=== PATIENT | male | born 1960 | race Caucasian/White ===

== ENCOUNTER → 2018-06-22 20:09 | Outpatient (CLI) | payer OTHER, SELFPAY | PROVIDERS: Visit Provider Internal Medicine Adolescent Medicine | DX: G47.33 Obstructive sleep apnea (adult) (pediatric) (principal); R06.83 Snoring; G47.10 Hypersomnia, unspecified | CPT/HCPCS: 95811 ==

== ENCOUNTER → 2019-03-27 09:51 | Outpatient (CLI) | payer OTHER, SELFPAY ==
[2019-03-27 11:46] LABS: Alanine Aminotransferase 30 U/L (12-78); Albumin Level 3.6 gm/dL (3.4-5.0); Albumin/Globulin Ratio 1.2 (1.1-1.8); Alkaline Phosphatase 103 U/L (46-116); Anion Gap 9.7 mEq/L (5-15); Aspartate Amino Transferase 15 U/L (15-37); Bilirubin,Total 0.3 mg/dL (0.2-1.0); Blood Urea Nitrogen 11 mg/dL (7-18); Calcium 9.1 mg/dL (8.5-10.1); Carbon Dioxide 28 mmol/L (21.0-32.0); Chloride 108 mmol/L (98-107); Chol/HDL Ratio 4.4 (1-3.5); Cholesterol 212 mg/dL (140-200); Creatinine,Serum 1.07 mg/dL (0.70-1.30); Estimated Glomerular Filt Rate 71 ml/min (>60); GFR (African American) 86 ML/MIN (>60); Globulin 3.1 gm/dl (1.3-3.2); Glucose 97 mg/dL (74-106); HDL Cholesterol 48 mg/dL (27-67); LDL Cholesterol 144 mg/dL (0-130); Potassium 4.7 mmoL/L (3.5-5.1); Sodium 141 mmol/L (136-145); Total Protein,Serum 6.7 gm/dL (6.4-8.2); Triglycerides 101 mg/dL (30-200); VLDL Cholesterol 20 mg/dL (0-40)
== END ==
PROVIDERS: Visit Provider Internal Medicine Adolescent Medicine
DX: E78.5 Hyperlipidemia, unspecified (principal)
CPT/HCPCS: 36415; 80053; 80061

== ENCOUNTER → 2019-09-25 09:47 | Outpatient (CLI) | payer OTHER, SELFPAY ==
[2019-09-25 10:12] LABS: Basophils # 0.1 K/mm3 (0-0.2); Basophils % 0.9 % (0.1-2.0); Eosinophils # 0.2 K/mm3 (0.0-0.4); Eosinophils % 2.7 % (0.1-12.0); Hematocrit 47.7 % (42.0-52.0); Hemoglobin 15.4 g/dL (14.1-18.0); Lymphocytes # 1.2 K/mm3 (0.7-4.5); Lymphocytes % 20.3 % (10-50); Mean Corpuscular HGB Conc 32.2 g/dL (31.8-35.4); Mean Corpuscular Hemoglobin 28.6 pg (27.0-31.2); Mean Corpuscular Volume 88.9 fl (80-94); Mean Platelet Volume 7.5 fl (7.4-10.4); Monocytes # 0.5 K/mm3 (0.1-1.0); Monocytes % 7.7 % (1.7-9.3); Neutrophils # 4.2 K/mm3 (1.8-7.8); Neutrophils % 68.3 % (37.0-80.0); Platelet Count 310 K/mm3 (142-424); Red Blood Count 5.36 M/mm3 (4.60-6.20); White Blood Count 6.1 K/mm3 (4.8-10.8)
[2019-09-25 15:16] LABS: Alanine Aminotransferase 30 U/L (12-78); Albumin Level 3.7 gm/dL (3.4-5.0); Albumin/Globulin Ratio 1.3 (1.1-1.8); Alkaline Phosphatase 101 U/L (46-116); Anion Gap 11.4 mEq/L (5-15); Aspartate Amino Transferase 15 U/L (15-37); Bilirubin,Total 0.5 mg/dL (0.2-1.0); Blood Urea Nitrogen 12 mg/dL (7-18); Calcium 9.2 mg/dL (8.5-10.1); Carbon Dioxide 27 mmol/L (21.0-32.0); Chloride 107 mmol/L (98-107); Chol/HDL Ratio 4.4 (1-3.5); Cholesterol 261 mg/dL (140-200); Creatinine,Serum 1.04 mg/dL (0.70-1.30); Estimated Glomerular Filt Rate 73 ml/min (>60); GFR (African American) 88 ML/MIN (>60); Globulin 2.9 gm/dl (1.3-3.2); Glucose 93 mg/dL (74-106); HDL Cholesterol 59 mg/dL (27-67); LDL Cholesterol 178 mg/dL (0-130); Potassium 4.4 mmoL/L (3.5-5.1); Sodium 141 mmol/L (136-145); Total Protein,Serum 6.6 gm/dL (6.4-8.2); Triglycerides 120 mg/dL (30-200); VLDL Cholesterol 24 mg/dL (0-40)
== END ==
PROVIDERS: Visit Provider Internal Medicine Adolescent Medicine
DX: E78.5 Hyperlipidemia, unspecified (principal); G47.33 Obstructive sleep apnea (adult) (pediatric)
CPT/HCPCS: 36415; 80053; 80061; 85025

== ENCOUNTER → 2020-03-27 09:54 | Outpatient (CLI) | payer OTHER, SELFPAY ==
[2020-03-27 10:36] LABS: Chloride 106 mmol/L (98-107); Potassium 4.4 mmoL/L (3.5-5.1); Sodium 138 mmol/L (136-145)
[2020-03-27 10:38] LABS: Blood Urea Nitrogen 15 mg/dl (9-20); Estimated Glomerular Filt Rate 76 ml/min (>60); GFR (African American) 93 ML/MIN (>60)
[2020-03-27 10:39] LABS: Alanine Aminotransferase 29 U/L (12-78); Albumin/Globulin Ratio 1.7 (1.1-1.8); Alkaline Phosphatase 87 U/L (38-126); Anion Gap 9.4 mEq/L (5-15); Aspartate Amino Transferase 32 U/L (17-59); Bilirubin,Total 0.7 mg/dl (0.2-1.3); Calcium 9.2 mg/dl (8.4-10.2); Carbon Dioxide 27 mmol/L (22.0-30.0); Chol/HDL Ratio 3.8 (1-3.5); Cholesterol 225 mg/dl (140-200); Globulin 2.4 g/dL (1.3-3.2); Glucose 99 mg/dl (74-100); HDL Cholesterol 59 mg/dl (40-60); Total Protein,Serum 6.4 g/dl (6.3-8.2); Triglycerides 148 mg/dl (30-150); VLDL Cholesterol 30 mg/dL (0-40)
[2020-03-27 10:50] LABS: Direct LDL Cholesterol 170.67 mg/dL (100-129)
== END ==
PROVIDERS: Visit Provider Internal Medicine Adolescent Medicine
DX: E78.5 Hyperlipidemia, unspecified (principal)
CPT/HCPCS: 36415; 80053; 80061

== ENCOUNTER → 2020-09-16 09:41 | Outpatient (CLI) | payer OTHER, SELFPAY ==
--- NOTE | 2020-09-16 09:47 | XR_ITS ---
PROCEDURE: XR KNEE RT 3V CLINICAL INDICATION: RT KNEE PAIN COMPARISON: No exams were available for comparison FINDINGS: No fracture or dislocation. No lytic or blastic change. There is normal mineralization. The joint spaces are well-preserved. No significant degenerative/arthritic changes other than minor spurring of the lateral tibial spine. No erosive changes evident. There is no definite effusion. Other findings:None. IMPRESSION: No acute findings. Dictated by: Dr. Rick Paz MD 09/16/2020 10:26 Dr. Rick Paz MD in [place] 09/16/2020 10:26
== END ==
PROVIDERS: PCP Internal Medicine Adolescent Medicine; Visit Provider Internal Medicine Adolescent Medicine
DX: M25.561 Pain in right knee (principal)
CPT/HCPCS: 73562

== ENCOUNTER 2020-10-04 08:00 | Outpatient (RCR) | payer OTHER, SELFPAY ==
--- NOTE | 2020-09-24 15:57 | HMH.PTOPEV ---
PT Outpatient Evaluation Rehab PT Outpatient Evaluation Start: 09/24/20 15:31 Freq: Status: Active Protocol: Document 09/24/20 15:31 MARGIE (Rec: 09/24/20 15:56 MARGIE [id number]) Electronically Signed By George Mendez, PT 09/24/20 15:31 Outpatient Therapy Subjective History Subjective History Pt reports h/o chronic R knee pain with possible repeatitive overuse injury ~2 months ago. Pt reports medial aspect R knee pain following extended tractor use (brake pedal), ' seems to be worse following a long day at walk, and then pain when I sit down to drive home'. Chief Complaint Pain,Stiff Symptom Type Ache,Sharp,Dull Symptoms Relieved By Rest/Positioning Symptoms Aggravated By Standing,Walking Prior Functional Limitations Standing,Walking Current Functional Limitations Standing,Squatting,Walking Symptom Description Intermittent Level of pain today (0-10) 2 Pain scale - at its best (0-10) 1 Pain scale - at its worst (0-10) 8 Hip/Knee Eval Gait Observation General Gait Pattern Observation Antalgic Gait Palpation Tenderness right Knee Palpation Finding Tenderness Knee Palpation Overall Comment 2/4 medial jt line MMT Hip Flexion Strength Grade 5 Normal Hip Abduction Strength Grade 4 Good Hip Adduction Strength Grade 4 Good Hip Extension Strength Grade 5 Normal Hip External Rotation Strength Grade 4 Good Hip Internal Rotation Strength Grade 4- Good- Knee Extension Strength Grade 5 Normal Knee Flexion Strength Grade 5 Normal ROM Knee Flexion Active Range of Motion ( 0-130 degrees) Special Tests Knee Valgus Stress Test Negative Right Knee Varus Stress Test Negative Right Knee Pal Test Negative Right Patella Apprehension Test Negative Right Patellar Grind Test Negative Right Outpatient Therapy Assessment Impairments Problems/Impairmments Palpation Tenderness,Impaired Range of Motion,Impaired Strength,Impaired Gait Pattern ,Impaired Walking,Impaired Standing,Impaired Squatting, Subjective C/O Pain,Impaired Self Care/Self Management Prognosis Rehab Potential Good Clinical Impression Consistent with Diagnosis Yes Short Term Goals Number of Weeks 4 Decreased Palpation Tenderness Yes: WFL
== END 2020-10-04 08:52 | disposition home or self-care (01) ==
LOC: PT 08:00
PROVIDERS: PCP Internal Medicine Adolescent Medicine; Visit Provider Internal Medicine Adolescent Medicine
DX: M25.561 Pain in right knee (principal)
CPT/HCPCS: 97010; 97014; 97033; 97035; 97110; 97163; G0283

== ENCOUNTER 2020-11-12 08:55 | Emergency (ER) | payer OTHER, SELFPAY ==
--- NOTE | 2020-11-12 09:06 | XR_ITS ---
PROCEDURE: XR WRIST LT MIN 3V CLINICAL INDICATION: fell off of ladder Posttraumatic pain COMPARISON: No exams were available for comparison FINDINGS: There is a faint calcific density posterior to the mid aspect of the wrist consistent with avulsion of the triquetrum. This density measures 3-4 mm and is displaced posteriorly by 3 mm. The joint spaces are well-preserved. No significant degenerative/arthritic changes. No erosive changes evident. Other findings:None. IMPRESSION: Triquetrum avulsion fracture Dictated by: Dominik Craig MD 11/12/2020 10:37 Dominik Craig MD in [place] 11/12/2020 10:37
[2020-11-12 09:07] VITALS: BP 158/78; PULSE 74; RESP 18; TEMP 36.6; O2SAT 97; BMI 28.5
--- NOTE | 2020-11-12 09:49 | HMH.EDUTC ---
[facility] [place]ression: Left wrist fracture Qualifiers: Encounter type: initial encounter Fracture type: closed Qualified Code(s): S62.102A - Fracture of unspecified carpal bone, left wrist, initial encounter for closed fracture Disposition: Home, Self-Care Condition on Discharge: Good Instructions: DI for Wrist Fracture, Wrist Fracture Additional Instructions: Rest the extremity, apply ice for 15 minutes as tolerated three or four times per day, Elevate the extremity as tolerated while you are resting. Take ibuprofen for pain. I sent in a prescription to your pharmacy. Follow up with Dr. Dixon (orthopedics). You have an appointment in his office for November 19 at 10:45 am. Follow up with your regular doctor. GO TO THE ER FOR ANY WORSENING SYMPTOMS Prescriptions: Ibuprofen [Ibuprofen 600mg Tablet] 600 mg PO Q6HP PRN #30 tab PRN Reason: Mild Pain Transmission Status: Pending to [facility] Referrals: Elder Gallagher MD [Primary Care Provider] - Time of Disposition: 09:53 Medical Decision Making - Medical Records Medical records reviewed: No: I reviewed the patient's medical records. - Mark Anthony Inquiry Pt receiving controlled substance: No Vital Signs: 11/12/20 09:07 Temperature 97.9 F Temperature Source Oral Pulse Rate [Radial] 74 Respiratory Rate 18 Blood Pressure [Right Arm] 158/78 H Blood Pressure Mean [Right Arm] 104 Blood Pressure Source [Right Arm] Automatic Cuff Blood Pressure Position [Right Arm] Sitting 02 Sat by Pulse Oximetry 97 Oxygen Delivery Method Room Air Orders (Tests/Meds): ORDERS Category Date Time Status XR wrist LT min 3V Stat Exams 11/12/20 09:06 [place] [facility] [place] - General Stated complaint: AO [id number] left wrist,home accident Time Seen by Provider: 11/12/20 09:10 Mode of Arrival: Ambulatory Source of Information: Patient Limitations: No Limitations Description of Symptoms (Recalled from Triage Doc. by RN): fell off ladder yesterday and hurt left wrist. HEENT Symptoms (Recalled from RN notes): No Resp Symptoms (Recalled from RN notes): No Skin Symptoms (Recalled from RN notes): No MS Symptoms (Recalled from RN notes): Yes Functional Status (Recalled from RN notes): wnl - History of Present Illness Provider Complaint: He is here after falling off of a ladder yesterday. When he fell he came down with most of his weight on his left wrist and hand. He has had pain and swelling of that wrist since then. He denies any numbness or tingling of the extremity. - Related Data Home Medications Medication Instructions Recorded Confirmed Aspirin [Aspirin 81mg chewable 81 mg PO DAILY 06/06/19 06/06/19 tab] Metoprolol Tartrate [Lopressor 25 mg PO BID 06/06/19 06/06/19 25mg tablet] Red Yeast Rice 600 mg PO DAILY 06/06/19 06/06/19 Previous Rx's Medication Instructions Recorded cephALEXin [Keflex 500mg Cap] 500 mg PO Q6H 7 Days #28 cap 06/06/19 Ibuprofen [Ibuprofen 600mg 600 mg PO Q6HP PRN #30 tab 11/12/20 Tablet] Allergies Allergy/AdvReac Type Severity Reaction Status Date / Time No Known Allergies Allergy Unverified 11/16/17 14:53 - Worker's Comp Is this a Worker's Comp case?: No [facility] History - Hepatitis A Screen Drug use history?: No High risk sexual behaviors?: No History of sexually transmitted infection?: No Currently employed?: No Childcare worker?: No Do you have indoor plumbing?: Yes Do you have electricity?: Yes Attestation statement:: This patient has been screened for Hepatitis A risk factors. I have reviewed the patient's past medical history: Yes - Social History Alcohol Intake: never Occupational Status: employed ROS Obtained: Yes All systems reviewed & no additional complaints - Constitutional Constitutional: Denies chills, Denies fever(s) - Musculoskeletal Musculoskeletal: Reports as per HPI - Integumentary/Breasts Skin/Breast: Denies r
[2020-11-12 10:01] VITALS: BP 158/78; PULSE 74; RESP 18; TEMP 36.6; O2SAT 97
== END 2020-11-12 10:01 | disposition home or self-care (01) ==
PROVIDERS: Emergency Provider Nurse Practitioner Family; PCP Internal Medicine Adolescent Medicine
DX: S62.115A Nondisplaced fracture of triquetrum [cuneiform] bone, left wrist, initial encounter for closed fracture (principal); W11.XXXA Fall on and from ladder, initial encounter; Y92.019 Unspecified place in single-family (private) house as the place of occurrence of the external cause; I10 Essential (primary) hypertension
CPT/HCPCS: 29125; 73110; 99201

== ENCOUNTER 2020-11-19 14:06 | Outpatient (RCR) | payer OTHER, SELFPAY | END 2020-11-19 14:45 | disposition home or self-care (01) | LOC: OT 14:06 | PROVIDERS: Visit Provider Orthopaedic Surgery | DX: S69.92XA Unspecified injury of left wrist, hand and finger(s), initial encounter (principal); S62.112A Displaced fracture of triquetrum [cuneiform] bone, left wrist, initial encounter for closed fracture | CPT/HCPCS: 97763 ==

== ENCOUNTER → 2020-12-17 12:49 | Outpatient (CLI) | payer OTHER, SELFPAY ==
--- NOTE | 2020-12-17 13:04 | XR_ITS ---
PROCEDURE: XR WRIST LT MIN 3V CLINICAL INDICATION: left wrist fracture fu; out of brace COMPARISON: CR XR WRIST LT MIN 3V from 11/12/2020 FINDINGS: Calcific density once again noted along the dorsal aspect of the wrist consistent with triquetrum avulsion injury not significantly changed. Otherwise negative. . IMPRESSION: No change triquetrum avulsion fracture Dictated by: Dominik Craig MD 12/17/2020 13:21 Dominik Craig MD in [place] 12/17/2020 13:21
== END ==
PROVIDERS: PCP Internal Medicine Adolescent Medicine; Visit Provider Orthopaedic Surgery
DX: S62.112A Displaced fracture of triquetrum [cuneiform] bone, left wrist, initial encounter for closed fracture (principal)
CPT/HCPCS: 73110

== ENCOUNTER → 2021-01-16 09:18 | Outpatient (CLI) | payer OTHER, SELFPAY ==
[2021-01-16 09:53] LABS: Basophils # 0.1 K/mm3 (0-0.2); Basophils % 1.3 % (0.1-2.0); Eosinophils # 0.2 K/mm3 (0.0-0.4); Eosinophils % 2.3 % (0.1-12.0); Hematocrit 48.4 % (42.0-52.0); Hemoglobin 16.1 g/dL (14.1-18.0); Lymphocytes # 1.9 K/mm3 (0.7-4.5); Lymphocytes % 20.7 % (10-50); Mean Corpuscular HGB Conc 33.2 g/dL (31.8-35.4); Mean Corpuscular Hemoglobin 28.1 pg (27.0-31.2); Mean Corpuscular Volume 84.5 fl (80-94); Mean Platelet Volume 6.4 fl (7.4-10.4); Monocytes # 0.6 K/mm3 (0.1-1.0); Monocytes % 6.2 % (1.7-9.3); Neutrophils # 6.3 K/mm3 (1.8-7.8); Neutrophils % 69.4 % (37.0-80.0); Platelet Count 364 K/mm3 (142-424); Red Blood Count 5.72 M/mm3 (4.60-6.20); Red Cell Distribution Width 13.3 % (11.5-17.5); White Blood Count 9.1 K/mm3 (4.8-10.8)
[2021-01-16 10:25] LABS: Chloride 105 mmol/L (98-107); Potassium 4.7 mmoL/L (3.5-5.1); Sodium 140 mmol/L (136-145)
[2021-01-16 10:28] LABS: Alanine Aminotransferase 24 U/L (12-78); Albumin Level 4.5 g/dl (3.5-5.0); Albumin/Globulin Ratio 1.5 (1.1-1.8); Alkaline Phosphatase 106 U/L (38-126); Anion Gap 8.7 mEq/L (5-15); Aspartate Amino Transferase 29 U/L (17-59); Bilirubin,Total 0.7 mg/dl (0.2-1.3); Blood Urea Nitrogen 17 mg/dl (9-20); Carbon Dioxide 31 mmol/L (22.0-30.0); Cholesterol 277 mg/dl (140-200); Estimated Glomerular Filt Rate 62 ml/min (>60); GFR (African American) 75 ML/MIN (>60); Globulin 3.1 g/dL (1.3-3.2); Total Protein,Serum 7.6 g/dl (6.3-8.2); Triglycerides 156 mg/dl (30-150); VLDL Cholesterol 31 mg/dL (0-40)
[2021-01-16 10:29] LABS: Calcium 10.5 mg/dl (8.4-10.2); Chol/HDL Ratio 4.8 (1-3.5); Glucose 110 mg/dl (74-100); HDL Cholesterol 58 mg/dl (40-60)
[2021-01-16 10:40] LABS: Direct LDL Cholesterol 188.62 mg/dL (100-129)
[2021-01-16 10:47] LABS: 25-OH Vitamin D, Total 31.2 ng/mL (30-100)
[2021-01-16 11:00] LABS: Thyroid Stimulating Hormone 3.14 uIU/mL (0.465-4.68)
== END ==
PROVIDERS: Visit Provider Internal Medicine Adolescent Medicine
DX: E78.5 Hyperlipidemia, unspecified (principal); G47.33 Obstructive sleep apnea (adult) (pediatric); Z78.9 Other specified health status
CPT/HCPCS: 36415; 80053; 80061; 82306; 84443; 85025

== ENCOUNTER → 2021-02-13 08:23 | Outpatient (CLI) | payer OTHER, SELFPAY ==
[2021-02-13 09:15] LABS: Alanine Aminotransferase 36 U/L (12-78); Albumin Level 4.3 g/dl (3.5-5.0); Albumin/Globulin Ratio 1.6 (1.1-1.8); Alkaline Phosphatase 79 U/L (38-126); Anion Gap 10.6 mEq/L (5-15); Aspartate Amino Transferase 41 U/L (17-59); Bilirubin,Total 0.8 mg/dl (0.2-1.3); Blood Urea Nitrogen 19 mg/dl (9-20); Calcium 9.6 mg/dl (8.4-10.2); Carbon Dioxide 27 mmol/L (22.0-30.0); Chloride 108 mmol/L (98-107); Chol/HDL Ratio 3.8 (1-3.5); Cholesterol 155 mg/dl (140-200); Estimated Glomerular Filt Rate 62 ml/min (>60); GFR (African American) 75 ML/MIN (>60); Globulin 2.7 g/dL (1.3-3.2); Glucose 108 mg/dl (74-100); HDL Cholesterol 41 mg/dl (40-60); Potassium 4.6 mmoL/L (3.5-5.1); Sodium 141 mmol/L (136-145); Triglycerides 175 mg/dl (30-150); VLDL Cholesterol 35 mg/dL (0-40)
[2021-02-13 09:26] LABS: Direct LDL Cholesterol 84.98 mg/dL (100-129)
== END ==
PROVIDERS: Visit Provider Internal Medicine Adolescent Medicine
DX: E78.5 Hyperlipidemia, unspecified (principal); Z78.9 Other specified health status
CPT/HCPCS: 36415; 80053; 80061

== ENCOUNTER → 2021-11-10 09:59 | Outpatient (CLI) | payer OTHER, SELFPAY ==
[2021-11-10 10:49] LABS: Chloride 103 mmol/L (98-107); Potassium 4.4 mmoL/L (3.5-5.1); Sodium 140 mmol/L (136-145)
[2021-11-10 10:52] LABS: Alanine Aminotransferase 45 U/L (12-78); Albumin Level 4.5 g/dl (3.5-5.0); Albumin/Globulin Ratio 1.9 (1.1-1.8); Alkaline Phosphatase 71 U/L (38-126); Anion Gap 12.4 mEq/L (5-15); Aspartate Amino Transferase 46 U/L (17-59); Bilirubin,Total 0.5 mg/dl (0.2-1.3); Blood Urea Nitrogen 16 mg/dl (9-20); Carbon Dioxide 29 mmol/L (22.0-30.0); Cholesterol 137 mg/dl (140-200); Estimated Glomerular Filt Rate 68 ml/min (>60); GFR (African American) 82 ML/MIN (>60); Globulin 2.4 g/dL (1.3-3.2); Total Protein,Serum 6.9 g/dl (6.3-8.2); Triglycerides 101 mg/dl (30-150); VLDL Cholesterol 20 mg/dL (0-40)
[2021-11-10 10:53] LABS: Calcium 9.4 mg/dl (8.4-10.2); Chol/HDL Ratio 3.1 (1-3.5); Glucose 101 mg/dl (74-100); HDL Cholesterol 44 mg/dl (40-60)
[2021-11-10 11:04] LABS: Direct LDL Cholesterol 80.71 mg/dL (100-129)
== END ==
PROVIDERS: Visit Provider Internal Medicine Adolescent Medicine
DX: E78.5 Hyperlipidemia, unspecified (principal)
CPT/HCPCS: 36415; 80053; 80061

== ENCOUNTER 2024-04-08 09:23 | Outpatient (CLI) | payer OTHER, SELFPAY ==
--- NOTE | 2024-04-08 09:36 | XR_ITS ---
PROCEDURE INFORMATION: Exam: XR Lumbosacral Spine Exam date and time: 04/08/2024 9:39 AM Age: 63 years old Clinical indication: Low back pain; Additional info: Low back pain; Pain in left leg TECHNIQUE: Imaging protocol: Radiologic exam of the lumbosacral spine. Views: 4 or 5 views. COMPARISON: No relevant prior studies available. FINDINGS: Bones/joints: There is no evidence of acute fracture.There is no evidence of malalignment or dislocation. Intervertebral disc space narrowing L1/L2 and L5/S1 consistent with degenerative disc disease.. Anterior osteophyte formation L1 through L5 Soft tissues: Unremarkable. IMPRESSION: 1. There is no evidence of acute fracture.There is no evidence of malalignment or dislocation. 2. Intervertebral disc space narrowing L1/L2 and L5/S1 consistent with degenerative disc disease..
== END 2024-04-08 23:59 | disposition home or self-care (01) ==
LOC: RAD 09:28
PROVIDERS: PCP Nurse Practitioner Family; Visit Provider Nurse Practitioner Family
DX: M54.50 Low back pain, unspecified (principal); M79.605 Pain in left leg
CPT/HCPCS: 72110

== ENCOUNTER 2024-05-25 08:00 | Outpatient (RCR) | payer OTHER, SELFPAY ==
--- NOTE | 2024-04-26 13:30 | HMH.PTOPEV ---
PT Outpatient Evaluation Rehab PT Outpatient Evaluation Start: 04/26/24 09:46 Freq: Status: Active Protocol: Document 04/26/24 09:46 ERLINDA (Rec: 04/26/24 10:59 ERLINDA [email or web address]) E-signed By Florence Nieto, PT Outpatient Therapy Subjective History Subjective History This is an initial evaluation for 63 y/o male, Easton Page , who presents with c/o acute LBP with radiating pain into L LE (thigh). Pt reports his LBP began 29 of March after working on his shower. Pt reports he lifted some equipment and twisted which is when he believed he hurt his back. Pt reports the next day he had severe pain LBP and numbness in the left thigh. Pt reports his pain has eased up since the initial injury (~20 %). Pt works as a marshall and owns cattle but has been taking it easy since the injury. Pt's goal for PT is to Get back to where I was and get back to work hope to get back to work. 04/08 x-ray impression: Intervertebral disc space narrowing L1/L2 and L5/S1 consistent with degenerative disc disease. New diagnosis of cancer in past 12 No months? Chief Complaint Pain,Paresthesia,Weakness Symptom Type Sharp,Stabbing,Numbness, Tingling,Shooting Symptoms Relieved By Rest/Positioning,OTC Meds, Prescription Meds Symptoms Aggravated By Physical Activity,Twisting Current Functional Limitations Reaching,Lifting,Housework, Sleeping,Recreation Activity, Walking Level of pain today (0-10) 1 Pain scale - at its best (0-10) 1 Pain scale - at its worst (0-10) 10 Lumbopelvic Eval Posture Thoracic Spine Posture Standing Position Neutral Lumbar Spine Posture Standing Position Neutral Assistive device Assistive Devices None / NA Gait Observation General Gait Pattern Observation Antalgic Gait Palapation tenderness left thoracic spinal tenderness No lumbar spinal tenderness Yes paraspinal tenderness Yes buttock tenderness No Lumbar/Sacral Palpation Findings Tenderness Lumbar/Sacral Palpation Overall Comment 1/4 TTP Range of Motion Lumbar Spine Active Flexion Range of 70, non-painful Motion (degrees) Lumbar Spine Active Extension Range of 20 deg, discomfort Motion (degrees) Left Lumbar Spine Lateral Flexion Active 15, painful Range of Motion (degrees) Right Lumbar Spine Lateral Flexion 20, non-painful Active Range of Motion (degrees) Lumbar Spine ROM Limitations Pain Manual Muscle Test Right Knee Extension Strength Grade 5 Normal Knee Flexion Strength Grade 5 Normal Hip Flexion Strength Grade 5 Normal Hip Abduction Strength Grade 5 Normal Hip Adduction Strength Grade 5 Normal Hip Extension Strength Grade 5 Normal Left Knee Extension Strength Grade 4 Good Knee Flexion Strength Grade 4 Good Hip Flexion Strength Grade 4 Good Hip Abduction Strength Grade 4 Good Hip Adduction Strength Grade 4 Good Hip Extension Strength Grade 4 Good Special Tests Hip Piriformis Test Negative Left,Negative Right Sciatic Nerve Tension Test Negative Left,Negative Right Bilateral Straight Leg Raise Test Negative Crossed Straight Leg Raise Test Negative Left,Negative Right Hip Magui's Test Positive Left Oswestry Index Section 1 Pain Intensity The pain is moderate and does not vary much Section 2 Personal Care (Washing,Dresing) increase the pain and I find it necessary to change my way of doing it Section 3 Lifting I can only lift very light weights at most Section 4 Walking I have some pain when walking but it does not increase with distance Section 5 Sitting I can sit in my favorite chair for as long as I like Section 6 Standing I have some pain on standing, but it does not increase with time Section 7 Sleeping I get pain in bed, but it does not prevent me from sleeping well Section 8 Social Life My social life is normal but increases the degree of pain Section 9 Traveling I get no pain when traveling Section 10 Changing Degreee of Pain My pain fluctuates, but overall is definitely getting better Score and Risk Level Oswestry Sc 17 Oswestry Risk Level Moderate Disability Outpatient Therapy Assessment Impairments Problems/Impairmments Palpation Tenderness,Impaired Range of Motion,Impaired Strength,Impaired Gait Pattern ,Impaired Recreational Activities,Impaired Running, Impaired Work Activities, Subjective C/O Pain Prognosis Rehab Potential Good Clinical Impression Consistent with Diagnosis Yes Short Term Goals Number of Weeks 3 Improve Tolerance to Work Activities Yes: Verbalize return to work with minimal difficulty Decrease Subjective C/O Pain Yes: 24 hour pain average of to demo low irritabilty and severity. Patient to be Ind w/ HEP Yes Group Home Goals Number of Weeks 6 Increase Range of Motion Yes: WNL to return to PLOF and improve functional ROM for work. Increase Strength Yes: 5/5 LLE to return to PLOF and improve functional strength. Improve Gait Pattern without Assistive Yes: No antalgic gait Device throughout all gait activities Decrease Subjective C/O Pain Yes: 24 hour pain average of to demo low severity and improve QOL. Patient to be Ind w/ Advanced HEP Yes Outpatient Therapy Plan of Care Treatment Plan May Include Therapeutic Exercise Including Home Yes Exercise Program Manual Therapy Techniques Yes Neuromuscular Re-education Yes Therapeutic Activities to Return to Yes Previous Functional/Work Level Gait Training Yes ADL/Self Care Education Yes Mechanical Traction Yes Dry Needling Yes Thermal Modalities Yes Electrical Stimulation Yes Ultrasound/Phonophoresis Yes Iontophoresis Yes Orthotics/Bracing/Splinting Yes Massage Yes Eval/Re-Eval Yes Aquatic Therapy Yes Frequency Times per week 1-2 times Duration Number of Weeks 6 weeks Addendums This patient is a candidate for social No or vocational rehab? Patient/Guardian verbally acknowledges Yes understanding of treatment program and consents to further treatment? Patient/Guardian verbally acknowledges Yes understanding of diagnosis, prognosis and goals for treatment? Eval Complexity PT Charges 94108 - Moderate Complexity Shoulder/Elbow Eval Shoulder Objective Measurements Elbow Objective Measurements PHYSICIAN CERTIFICATION: I certify the specified therapy services for Easton Page are required, authorized, and reviewed every 30 days.
== END 2024-05-25 09:10 | disposition home or self-care (01) ==
LOC: PT 08:00
PROVIDERS: Visit Provider Nurse Practitioner Family
DX: M51.36 Other intervertebral disc degeneration, lumbar region (principal); M54.42 Lumbago with sciatica, left side
CPT/HCPCS: 97010; 97014; 97110; 97163; G0283